=== PATIENT | male | born 1960 | race Two or more races ===

== ENCOUNTER 2021-04-20 19:52 | Emergency (ER) | payer SELFPAY ==
[~2021-04-20] VITALS: Ht 172.7 cm; Wt 102.6 kg
--- NOTE | 2021-04-20 21:08 | PHYS DOC ---
General Adult EDM: Chief Complaint: FLU SYMPTOM HPI: HPI: Patient is a 60 year old male with no significant medical history who presents the ED today complaining of cough, and body aches symptoms began yesterday. Patient states the got admitted to the hospital a couple days ago with COVID19. Patient denies any fever, shortness of breath, he states he did not receive any Covid vaccine Review of Systems: Review of Systems: Constitutional: Reports body aches denies fever or chills. [] Eyes: Denies change in visual acuity. [] HENT: Denies nasal congestion or sore throat. [] Respiratory: Reports cough denies shortness of breath. [] Cardiovascular: denies chest pain GI: Denies abdominal pain, nausea, vomiting, bloody stools or diarrhea. [] : Denies dysuria. [] Musculoskeletal: Denies back pain or joint pain. [] Integument: Denies rash. [] Neurologic: Denies headache, focal weakness or sensory changes. [] Psychiatric: Denies depression or anxiety. [] Heart Score: C/O Chest Pain: N/A Risk Factors: Risk Factors: DM, Current or recent (<one month) smoker, HTN, HLP, family history of CAD, obesity. Risk Scores: Score 0 - 3: 2.5% MACE over next 6 weeks - Discharge Home Score 4 - 6: 20.3% MACE over next 6 weeks - Admit for Clinical Observation Score 7 - 10: 72.7% MACE over next 6 weeks - Early Invasive Strategies Allergies: Allergies: Allergies Coded Allergies Type Severity Reaction Last Updated Verified No Known Drug Allergies 04/20/21 No Physical Exam: PE: Constitutional: Well developed, well nourished, no acute distress, non-toxic appearance. [] HENT: Normocephalic, atraumatic, bilateral external ears normal, oropharynx moist, no oral exudates, nose normal. [] Eyes: PERRLA, EOMI, conjunctiva normal, no discharge. [] Neck: Normal range of motion, no tenderness, supple, no stridor. [] Cardiovascular:Heart rate regular rhythm, no murmur [] Lungs & Thorax: Bilateral breath sounds clear to auscultation [] Abdomen: Bowel sounds normal, soft, no tenderness, no masses, no pulsatile masses. [] Skin: Warm, dry, no erythema, no rash. [] Back: No tenderness, no CVA tenderness. [] Extremities: No tenderness, no cyanosis, no clubbing, ROM intact, no edema. [] Neurologic: Alert and oriented X 3, normal motor function, normal sensory function, no focal deficits noted. [] Psychologic: Affect normal, judgement normal, mood normal. [] EKG: EK interpreted by Dr. Hines sinus rhythm heart rate 79 no STEMI [] Radiology/Procedures: Radiology/Procedures: PROCEDURE: PORTABLE CHEST 1V EXAM: CHEST 1 VIEW History: Cough COMPARISON: 02/28/2009. TECHNIQUE: Single portable radiograph of the chest FINDINGS: The cardiac silhouette is unremarkable. There are scattered patchy airspace opacities bilateral lungs likely atelectasis or infiltrates. The costophrenic sulci are clear and well demarcated. IMPRESSION: Scattered patchy airspace opacities bilateral lungs likely atelectasis or infiltrates. Follow-up to resolution. Electronically signed by: Gene Alcantar MD (04/20/2021 9:27 PM) [id number] DICTATED and SIGNED BY: GENE ALCANTAR MD DATE: 04/20/[id number] 0 Course & Med Decision Making: Course & Med Decision Making Pertinent Labs and Imaging studies reviewed. (See chart for details) This is a 60-year-old male patient presented to the ED today with cough, body aches, symptoms began yesterday, got diagnosed with COVID-19 a couple days ago. Vitals on arrival to the ED temperature 98.9, heart rate 87, respiration 22 on room air, blood pressure 129/83, O2 sats 95%. EKG is negative, CBC CMP troponin-no acute findings. Chest x-ray noted for scattered patchy airspace opacities bilateral lungs likely atelectasis or infiltrates. Given Decadron and Zosyn in the ED, patient states he has 3 other children at home 18-year-old 15 and 13-year-old. He was discharged home with Augmentin. He was also given prescription for prednisone. Instructed to return to the ED at any point symptoms worsen Dragon Disclaimer: Dragon Disclaimer: This electronic medical record was generated, in whole or in part, using a voice recognition dictation system. Departure Departure Impression: Primary Impression: Cough Additional Impressions: Person under investigation for COVID-19 Body aches Disposition: HOME / SELF CARE / HOMELESS Condition: STABLE Referrals: ROSA UGALDE MD (PCP) Patient Instructions: Cough, Adult, [id number] Additional Instructions: You were evaluated in the emergency room with Covid symptoms. Your rapid Covid test is negative, your PCR Covid test is pending. Quarantine yourself until results come back. Take the prescribed antibiotics until completed. Please come back to the ED at any point symptoms worsen. Scripts Doxycycline Hyclate (DOXYCYCLINE HYCLATE) 100 Mg Capsule 1 CAP PO BID, #14 CAP Prov: CHELSIE TAVARES CATALYST OPERATOR 04/20/21 Prednisone (PREDNISONE) 50 Mg Tablet 1 TAB PO DAILY, #5 TAB Prov: CHELSIE TAVARES CATALYST OPERATOR 04/20/21 Benzonatate (BENZONATATE) 100 Mg Capsule 1 CAP PO TID, #30 CAP Prov: CHELSIE TAVARES CATALYST OPERATOR 04/20/21 CHELSIE TAVARES APRN Apr 20, 2021 21:08
--- NOTE | 2021-04-20 21:29 | RAD ---
EXAM: CHEST 1 VIEW History: Cough COMPARISON: 02/28/2009. TECHNIQUE: Single portable radiograph of the chest FINDINGS: The cardiac silhouette is unremarkable. There are scattered patchy airspace opacities bila teral lungs likely atelectasis or infiltrates. The costophrenic sulci are clear and well demarcated. IMPRESSION: Scattered patchy airspace opacities bilateral lungs likely atelectasis or infiltrates. Follow-up to resolution. Electronically signed by: Gene Alcantar MD (04/20/2021 9:27 PM) [id number]
[2021-04-20] MEDS ORDERED: ASPIRIN 325 MG TABLET PO ONE (21:30)
[2021-04-20] MEDS ORDERED: DEXAMETHASONE SOD PHOS 20 MG/5 ML VIAL. IV ONE (21:30)
[2021-04-20 21:45] LABS: BASO % 1 % (0-3); EOS % 0 % (0-3); HEMATOCRIT 39.6 % (39.0-53.0); HEMOGLOBIN 13.7 g/dL (13.0-17.5); LYMPH # 1.3 x10^3/uL (1.0-4.8); LYMPH % 15 % (24-48); MEAN CORPUSCULAR HEMOGLOBIN 28 pg (25-35); MEAN CORPUSCULAR HGB CONC 35 g/dL (31-37); MEAN CORPUSCULAR VOLUME 82 fL (79-100); MONO # 0.8 x10^3/uL (0.0-1.1); MONO % 9 % (0-9); NEUT # 6.3 x10^3/uL (1.8-7.7); NEUT % 75 % (31-73); PLATELET COUNT 273 x10^3/uL (140-400); RED BLOOD COUNT 4.83 x10^6/uL (4.30-5.70); WHITE BLOOD COUNT 8.3 x10^3/uL (4.0-11.0)
[2021-04-20] MEDS ORDERED: PIPERACILLIN/TAZOBACTAM 3.375 GM in IV NORMAL SALINE 50ML 50 ML IV ONE (22:00)
[2021-04-20 22:04] LABS: CALCIUM 8.2 mg/dL (8.5-10.1); CREATININE 0.9 mg/dL (0.7-1.3); GFR 85.8; POTASSIUM 3.7 mmol/L (3.5-5.1)
[2021-04-20 22:08] LABS: ALBUMIN 2.7 g/dL (3.4-5.0); ALBUMIN/GLOBULIN RATIO 0.5 (1.0-1.7); MAGNESIUM 2.2 mg/dL (1.8-2.4); TOTAL BILIRUBIN 0.5 mg/dL (0.2-1.0); TOTAL PROTEIN 7.7 g/dL (6.4-8.2)
[2021-04-20 22:11] LABS: CREATINE KINASE 90 U/L (39-308)
[2021-04-20 22:15] LABS: INFLUENZA A PATIENT NEGATIVE (NEGATIVE); INFLUENZA B PATIENT NEGATIVE (NEGATIVE)
[2021-04-20 23:22] VITALS: BP 123/60
[2021-04-20] MEDS ORDERED: PRED50TA PO (23:26)
[2021-04-20] MEDS ORDERED: DOXY100C3 PO (23:26)
[2021-04-20] MEDS ORDERED: BENZ-8 PO (23:26)
--- NOTE | 2021-04-21 01:04 | EKG ---
[facility] [address] [place] [address] Test Date: 2021-04-20 Test Time: 21:21:30 Pat Name: CORA KHOURY Department: Room: Gender: M User Experience Architect: : [id number] Requested By: CHELSIE TAVARES Order Number: [id number] Reading MD: Rikki Cabrera MD Measurements Intervals [place] Rate: 79 P: 38 CA: 180 QRS: 28 QRSD: 80 T: 9 QT: 346 QTc: 398 Interpretive Statements SINUS RHYTHM Electronically Signed On 04-21-2021 11:44:30 [facility] by Rikki Cabrera MD
--- NOTE | 2021-04-21 16:41 | NUR ---
IP: Attempted to contact pt concerning covid results. No answer, left a voicemail to return the call.
--- NOTE | 2021-04-22 09:25 | NUR ---
IP: Informed pt and daughter of positive covid test and the need to quarantine for 10 days. Both verbalized understanding.
== END 2021-04-21 | disposition home or self-care (01) ==
LOC: ER 19:52
DX: U07.1 COVID-19 (principal); R05.9 Cough, unspecified; M79.10 Myalgia, unspecified site
CPT/HCPCS: 36415; 71045; 80053; 82553; 83605; 83735; 83880; 84145; 84484; 85025; 87040; 87426; 87804; 93005; 96365; 96375; 99285; J1100; J2543; U0003; U0005